=== PATIENT | male | born 1980 | race Caucasian/White ===

== ENCOUNTER 2017-06-04 16:44 | Emergency (ER) | payer MEDICAID ==
[2017-06-04 17:05] VITALS: BP 119/85; PULSE 86; RESP 18; TEMP 98.2; O2SAT 98
--- NOTE | 2017-06-04 17:10 | EDPHY ---
H & P Stated Complaint: Cyst on top of head draining x 2 wks Time Seen by Provider: 06/04/17 17:10 HPI/ROS: HPI: This is a 36-year-old male who presents with Chief Complaint: Cyst on top of head draining x 2 wks Location:top of head Quality:cyst Duration: 2 weeks Signs and Symptoms: No fever, no headache, no radiation, + mild pain Timing: Increasing Severity: Moderate Context: Patient reports that he hit the top of his head approximately 20 years ago but none recently. He knows the small area on the top of his head with developed a cyst, drain clear or purulent drainage, slowly decrease in size and then quickly reaccumulate. He denies any easy bruising/headache/ dizziness/NSAID use. He has no primary care provider in the area. Modifying Factors: I and D Comment: ROS: see HPI Constitutional: No fever, no chills, no weight loss Eyes: No blurred vision Respiratory: No shortness of breath, no cough Cardiovascular: No chest pain Gastrointestinal: No nausea, no vomiting, no diarrhea Genitourinary: No dysuria Extremities: No myalgias Neurologic: No weakness, no numbness Skin: No rashes Hematologic: No bruising, no bleeding MEDICAL/SURGICAL/SOCIAL HISTORY: Medical history: Generally healthy. Does not take any regular medications. Surgical history: Denies Social history: Employed. CONSTITUTIONAL: awake and alert, no obvious distress HEENT: Atraumatic and normocephalic, 4 cm annular cystic-like lesion on top of scalp; no surrounding erythema. PERRL, EOMI. Tympanic membranes clear. Oropharynx clear, no exudate and moist pink mucosa. Airway patent. No lymphadenopathy. No meningismus. Cardiovascular: Normal S1/S2, regular rate, regular rhythm, without murmur rub or gallop. PULMONARY/CHEST: Symmetrical and nontender. Clear to auscultation bilaterally. Good air movement. No accessory muscle usage. ABDOMEN: Soft, nondistended, nontender, no rebound, no guarding, no peritoneal signs, no masses or organomegaly. No CVAT. EXTREMITIES: 2/2 pulses, strength 5/5, no deformities, no clubbing, no cyanosis or edema. NEUROLOGICAL: no focal neuro deficits. GCS 15. SKIN: Warm and dry, no erythema. no rash. Good capillary refill. Source: Patient Exam Limitations: No limitations - Personal History Current Tetanus Diphtheria and Acellular Pertussis (TDAP): Yes - Medical/Surgical History Other PMH: neg - Social History Smoking Status: Current every day smoker Constitutional: Initial Vital Signs Temperature (C) 36.8 C 06/04/17 17:00 Heart Rate 86 06/04/17 17:00 Respiratory Rate 18 06/04/17 17:00 Blood Pressure 119/85 H 06/04/17 17:00 O2 Sat (%) 98 06/04/17 17:00 O2 Delivery Mode Room Air Allergies/Adverse Reactions: No Known Allergies Allergy (Unverified 06/04/17 17:05) Home Medications: Medication Instructions Recorded NK [No Known Home Meds] 06/04/17 Medical Decision Making Procedures: Procedure: Abscess drainage. The patient's cystic lesion was located on the top of the scalp. I obtained verbal consent from the patient to drain the abscess who was informed about the possibility of bleeding and pain. The abscess was incised with #11 scalpel and 5 mL amount of serosanguineous drainage was expressed. I irrigated the wound and applied bacitracin. The patient tolerated the procedure well. The procedure was performed by myself. ED Course/Re-evaluation: I and D performed. Wound culture sent. Serosanguineous fluid removed. Antibiotics not indicated at this time. Lesion appears to be more cystic versus hemangioma in nature. There is a calcified area near the corner of the cyst. I feel that patient would benefit from plastic surgery follow-up to remove the cystic lesion and obtain biopsy for best cosmesis. This patient was seen under the supervision of my secondary supervising physician. I evaluated care for this patient independently. Discussed this patient with Dr. Mc who did not see the patient. Departure - Departure Disposition: Home, Routine, Self-Care Clinical Impression: Scalp lesion Condition: Good Instructions: Dermal Cyst Excision (DC) Additional Instructions: Wash the site daily with mild soap and water; then pat dry; apply topical antibiotic ointment. Take Tylenol 650 mg every 4 hours and/or Ibuprofen 600 mg every 8 hours with food as needed for pain. Follow up with Plastic Surgery in 5-7 days at which time they will evaluate and recommend with you if conservative management versus local surgery is indicated. Referrals: Km Shepherd MD [Medical Doctor] - As per Instructions
[2017-06-04] MEDS ORDERED: traMADol 50 MG TAB PO ONE (18:31)
== END 2017-06-04 18:52 | disposition home or self-care (01) ==
PROC: 0H90XZZ Drainage of Scalp Skin, External Approach (ICD-10-PCS; principal; 2017-06-04)
DX: L98.9 Disorder of the skin and subcutaneous tissue, unspecified (principal); F17.200 Nicotine dependence, unspecified, uncomplicated